=== PATIENT | male | born 1950 | race Caucasian/White ===

== ENCOUNTER 2018-04-27 12:14 | Inpatient (IN) | payer MEDICARE, MEDICAID | END 2018-05-01 16:16 | LOC: ER 12:14 → ORTHO 4S 04-28 13:26 → ED HOLD 17:20 | DX: S72.012A Unspecified intracapsular fracture of left femur, initial encounter for closed fracture (principal); K85.90 Acute pancreatitis without necrosis or infection, unspecified ==